=== PATIENT | male | born 1960 | race Caucasian/White ===

== ENCOUNTER 2016-03-25 21:00 | Inpatient (IN) | payer MEDICARE ==
[~2016-03-25] VITALS: Ht 175.3 cm; Wt 117.5 kg
[2016-03-25] MEDS ORDERED: DUONEB INH ONE (21:50)
[2016-03-25] MEDS ORDERED: SODIUM CHLORIDE 0.9% 100 ML IV ONE (22:17)
[2016-03-25] MEDS ORDERED: CEFTRIAXONE 1 GM VIAL ONE (22:17)
[2016-03-25] MEDS ORDERED: BUMETANIDE 1 MG/4 ML VIAL IV ONE (22:21)
[2016-03-25] MEDS ORDERED: AZITHROMYCIN 500 MG VIAL IV ONE (22:54)
[2016-03-25] MEDS ORDERED: SODIUM CHLORIDE 0.9% 250 ML IV ONE (22:54)
[2016-03-26] VITALS (8 sets, daily range): BP systolic 100–138; RESP 16–18; TEMP 97.6–98.8; Ht 175.3 cm; Wt 117.5 kg
[2016-03-26] MEDS ORDERED: SALINE FLUSH 10 ML FLUSH PRN (02:00)
[2016-03-26] MEDS ORDERED: DEXTROSE 50% SYRINGE 50 ML IV PRN ×2 (02:05→02:55)
[2016-03-26] MEDS ORDERED: GLUCAGON 1 MG VIAL IM PRN ×2 (02:05→02:55)
[2016-03-26] MEDS ORDERED: Furosemide 100 MG/10 ML VIAL IV ONE (02:50)
[2016-03-26] MEDS ORDERED: DIAZEPAM 5 MG TAB PO PRN (02:55)
[2016-03-26] MEDS: SODIUM CHLORIDE 0.9% FLUSH BAG 500 ML IV SCH (05:20)
[2016-03-26] MEDS: SALINE FLUSH 10 ML FLUSH SCH ×2 (07:50→20:20)
[2016-03-26] MEDS: OXYCODONE 40 MG PO SCH ×2 (07:51→20:21)
[2016-03-26] MEDS: amLODIPine 10 MG TAB PO SCH (07:52)
[2016-03-26] MEDS: SPIRONOLACTONE 25 MG TAB PO SCH ×2 (07:52→20:28)
[2016-03-26] MEDS: METOPROLOL XL 100 MG TAB PO SCH (07:52)
[2016-03-26] MEDS: ISOSORBIDE MONO 60 MG TAB PO SCH (07:52)
[2016-03-26] MEDS: ENOXAPARIN 40 MG/0.4 ML SYR SUBQ SCH (07:53)
[2016-03-26] MEDS ORDERED: METHYLPRED SOD SUCC 125 MG/2 ML VIAL IV SCH (08:00)
[2016-03-26] MEDS ORDERED: LEVOFLOXACIN 750 MG/150 ML 150 ML IV SCH (09:00)
[2016-03-26] MEDS: DOXYCYCLINE 100 MG in SODIUM CHLORIDE 0.9% 250 ML IV SCH ×2 (10:49→20:20)
[2016-03-26] MEDS ORDERED: MISSING DOSE XX ONE ×3 (12:55→20:20)
[2016-03-26] MEDS: CEFTRIAXONE 1 GM in SODIUM CHLORIDE 0.9% 50 ML IV SCH (13:26)
[2016-03-26] MEDS: Aspirin 325 MG TAB PO SCH (17:21)
[2016-03-26] MEDS: CLOPIDOGREL 75 MG TAB PO SCH (20:20)
[2016-03-26] MEDS: PREDNISONE 20 MG TAB PO SCH (20:20)
[2016-03-26] MEDS: BUMETANIDE 1 MG TAB PO SCH (20:20)
[2016-03-26] MEDS: ROSUVASTATIN 20 MG TAB PO SCH (20:21)
[2016-03-26] MEDS ORDERED: LEVEMIR INSULIN SUBQ SCH ×2 (21:00)
[2016-03-27 03:32] VITALS: BP_SYST 156; RESP 16; TEMP 97.9
[2016-03-27] MEDS: SODIUM CHLORIDE 0.9% FLUSH BAG 500 ML IV SCH (05:55)
[2016-03-27 07:42] VITALS: BP_SYST 123; TEMP 97.7
[2016-03-27] MEDS: SALINE FLUSH 10 ML FLUSH SCH ×2 (08:05→20:13)
[2016-03-27] MEDS: CEFTRIAXONE 1 GM in SODIUM CHLORIDE 0.9% 50 ML IV SCH (08:05)
[2016-03-27] MEDS: OXYCODONE 40 MG PO SCH ×2 (08:09→20:14)
[2016-03-27] MEDS: ENOXAPARIN 40 MG/0.4 ML SYR SUBQ SCH (09:00)
[2016-03-27] MEDS: Aspirin 325 MG TAB PO SCH (09:42)
[2016-03-27] MEDS: BUMETANIDE 1 MG TAB PO SCH ×2 (09:42→20:14)
[2016-03-27] MEDS: ROFLUMILAST 500 MCG TAB PO SCH (09:42)
[2016-03-27] MEDS: SPIRONOLACTONE 25 MG TAB PO SCH ×2 (09:42→20:13)
[2016-03-27] MEDS: SITAGLIPTIN 50 MG TAB PO SCH (09:43)
[2016-03-27] MEDS: PREDNISONE 20 MG TAB PO SCH ×2 (09:43→20:13)
[2016-03-27] MEDS: DOXYCYCLINE 100 MG in SODIUM CHLORIDE 0.9% 250 ML IV SCH (09:44)
[2016-03-27] MEDS ORDERED: MISSING DOSE XX ONE (09:50)
[2016-03-27] MEDS: ISOSORBIDE MONO 60 MG TAB PO SCH (10:14)
[2016-03-27] MEDS: amLODIPine 10 MG TAB PO SCH (10:14)
[2016-03-27] MEDS: METOPROLOL XL 100 MG TAB PO SCH (10:14)
[2016-03-27 10:52] VITALS: BP_SYST 123; RESP 18; TEMP 98.6
[2016-03-27 15:00] VITALS: BP_SYST 106; RESP 18; TEMP 98.8
[2016-03-27 19:09] VITALS: BP_SYST 123; RESP 16; TEMP 97.9
[2016-03-27] MEDS: DOXYCYCLINE 100 MG TAB PO SCH (20:13)
[2016-03-27] MEDS: CLOPIDOGREL 75 MG TAB PO SCH (20:14)
[2016-03-27] MEDS: ROSUVASTATIN 20 MG TAB PO SCH (20:14)
[2016-03-27] MEDS: LEVEMIR INSULIN SUBQ SCH (20:15)
[2016-03-27 23:47] VITALS: BP_SYST 123; RESP 16; TEMP 98.9
[2016-03-28] MEDS: SODIUM CHLORIDE 0.9% FLUSH BAG 500 ML IV SCH (05:42)
[2016-03-28 07:42] VITALS: BP_SYST 130; RESP 18; TEMP 98.5
[2016-03-28] MEDS ORDERED: MISSING DOSE XX ONE ×2 (08:50→12:30)
[2016-03-28] MEDS: CEFTRIAXONE 1 GM in SODIUM CHLORIDE 0.9% 50 ML IV SCH (08:57)
[2016-03-28] MEDS: ENOXAPARIN 40 MG/0.4 ML SYR SUBQ SCH (08:57)
[2016-03-28] MEDS: BUMETANIDE 1 MG TAB PO SCH ×2 (08:58→20:29)
[2016-03-28] MEDS: OXYCODONE 40 MG PO SCH ×2 (08:58→20:29)
[2016-03-28] MEDS: ISOSORBIDE MONO 60 MG TAB PO SCH (08:58)
[2016-03-28] MEDS: ROFLUMILAST 500 MCG TAB PO SCH (08:58)
[2016-03-28] MEDS: METOPROLOL XL 100 MG TAB PO SCH (08:59)
[2016-03-28] MEDS: Aspirin 325 MG TAB PO SCH (08:59)
[2016-03-28] MEDS: PREDNISONE 20 MG TAB PO SCH ×2 (08:59→20:29)
[2016-03-28] MEDS: SITAGLIPTIN 50 MG TAB PO SCH (08:59)
[2016-03-28] MEDS: SPIRONOLACTONE 25 MG TAB PO SCH ×2 (08:59→20:30)
[2016-03-28] MEDS: DOXYCYCLINE 100 MG TAB PO SCH ×2 (10:48→20:29)
[2016-03-28] MEDS: amLODIPine 10 MG TAB PO SCH (10:48)
[2016-03-28] MEDS ORDERED: METFORMIN XR 500 MG TAB PO ONE (11:20)
[2016-03-28 11:22] VITALS: BP_SYST 110; RESP 16; TEMP 97.9
[2016-03-28 15:30] VITALS: BP_SYST 115; RESP 18; TEMP 97.6
[2016-03-28] MEDS: SALINE FLUSH 10 ML FLUSH SCH ×2 (17:29→20:00)
[2016-03-28 19:56] VITALS: BP_SYST 116; RESP 18; TEMP 98.5
[2016-03-28] MEDS: CLOPIDOGREL 75 MG TAB PO SCH (20:29)
[2016-03-28] MEDS: ROSUVASTATIN 20 MG TAB PO SCH (20:29)
[2016-03-28] MEDS: LEVEMIR INSULIN SUBQ SCH (20:30)
[2016-03-28 23:43] VITALS: BP_SYST 122; RESP 16; TEMP 99
[2016-03-29] MEDS: SODIUM CHLORIDE 0.9% FLUSH BAG 500 ML IV SCH (05:48)
[2016-03-29] MEDS: SALINE FLUSH 10 ML FLUSH SCH (08:00)
[2016-03-29] MEDS: BUMETANIDE 1 MG TAB PO SCH (08:01)
[2016-03-29] MEDS: ISOSORBIDE MONO 60 MG TAB PO SCH (08:02)
[2016-03-29] MEDS: DOXYCYCLINE 100 MG TAB PO SCH (08:02)
[2016-03-29] MEDS: Aspirin 325 MG TAB PO SCH (08:02)
[2016-03-29] MEDS: PREDNISONE 20 MG TAB PO SCH (08:03)
[2016-03-29] MEDS: SITAGLIPTIN 50 MG TAB PO SCH (08:03)
[2016-03-29] MEDS: SPIRONOLACTONE 25 MG TAB PO SCH (08:03)
[2016-03-29] MEDS: METOPROLOL XL 100 MG TAB PO SCH (08:03)
[2016-03-29] MEDS: ROFLUMILAST 500 MCG TAB PO SCH (08:03)
[2016-03-29] MEDS: amLODIPine 10 MG TAB PO SCH (08:03)
[2016-03-29] MEDS: OXYCODONE 40 MG PO SCH (08:04)
[2016-03-29] MEDS: ENOXAPARIN 40 MG/0.4 ML SYR SUBQ SCH (08:05)
[2016-03-29] MEDS: CEFTRIAXONE 1 GM in SODIUM CHLORIDE 0.9% 50 ML IV SCH (08:06)
[2016-03-29 08:17] VITALS: BP_SYST 134; RESP 18; TEMP 97.7
[2016-03-29] MEDS ORDERED: METFORMIN XR 500 MG TAB PO SCH (09:00)
[2016-03-29 11:13] VITALS: BP_SYST 123; RESP 18; TEMP 98.5
[2016-03-29 13:40] VITALS: BP_SYST 123; RESP 18; TEMP 98.5
[2016-03-30] MEDS ORDERED: PREDNISONE 20 MG TAB PO SCH (09:00)
== END 2016-03-29 14:10 | disposition home or self-care (01) | DRG 189 ==
LOC: ENRESERVTM → ENRESERV → ENRESERVDT → ER 21:00 → ENPENDDIS 03-26 00:18 → EMR 03-26 00:18 → 4THE 03-26 00:59
PROVIDERS: ADMIT Family Medicine; ATTEND Family Medicine
DX: J96.01 Acute respiratory failure with hypoxia (principal); J18.9 Pneumonia, unspecified organism; I50.31 Acute diastolic (congestive) heart failure; J44.0 Chronic obstructive pulmonary disease with (acute) lower respiratory infection; J44.1 Chronic obstructive pulmonary disease with (acute) exacerbation; Z72.0 Tobacco use; E11.65 Type 2 diabetes mellitus with hyperglycemia; Z79.4 Long term (current) use of insulin; I25.10 Atherosclerotic heart disease of native coronary artery without angina pectoris; G47.30 Sleep apnea, unspecified; G89.4 Chronic pain syndrome; Z79.82 Long term (current) use of aspirin; I11.0 Hypertensive heart disease with heart failure
CPT/HCPCS: 36415; 71010; 80048; 80053; 82553; 82947; 83036; 83605; 83880; 84145; 84484; 85025; 87040; 87071; 87278; 87299; 87804; 93005; 93306; 94640; 94664; 94799; 99222; 99233